=== PATIENT | male | born 1975 | race Caucasian/White ===

== ENCOUNTER 2016-11-09 10:11 | Emergency (ER) | payer OTHER ==
--- NOTE | 2016-11-09 12:10 | UCPHY ---
H & P Time Seen by Provider: 11/09/16 11:23 Patient Type: Established HPI/ROS: CHIEF COMPLAINT: Back pain History by patient HISTORY OF PRESENT ILLNESS: A 41-year-old male with no significant past medical history presents complaining of severe low back pain and spasms. This is the 3rd or 4th episode the patient has had like this in the past year. The last time this happened 2 months ago he was admitted to [facility] due to severe pain and need for pain control. At that time he had an MRI which was read as normal. He subsequently followed up with some physical therapy and has been seen a chiropractor which she feels has been making things somewhat better but in the past few days it seems to have flared up again. He tried taking some muscle relaxant at home with some relief. He has not tried any other medications. He has never tried massage for this. He denies any focal numbness or weakness but has pain in his back when he tries to walk so he has been using a walker. There is no bowel or bladder incontinence. REVIEW OF SYSTEMS: As in HPI, and all other systems reviewed and are negative Smoking Status: Never smoked Physical Exam: General Appearance: Alert and somewhat uncomfortable appearing standing with a walker in room. Eyes: Pupils equal and round no injection. Musculoskeletal: Neck is supple and nontender. Back: No CVA tenderness, some localized muscle spasm along his bilateral paraspinal muscles right greater than left, no bony tenderness Extremities: Full range of motion Neuro: Normal gait, patient's can stand on his heels and toes, distal sensation intact. Skin: No rashes or lesions. Constitutional: Initial Vital Signs Heart Rate 79 11/09/16 10:32 Respiratory Rate 18 11/09/16 10:32 Blood Pressure 121/79 H 11/09/16 10:32 O2 Sat (%) 97 11/09/16 10:32 O2 Delivery Mode Room Air Allergies/Adverse Reactions: No Known Allergies Allergy (Verified 09/23/15 16:52) Home Medications: Medication Instructions Recorded Cyclobenzaprine [Flexeril 10 MG 10 mg PO TID PRN #15 tab 11/09/16 (*)] Lidocaine 5% [Lidoderm 5% Patch 1 ea TD DAILY #10 patch 11/09/16 (*)] Meloxicam 7.5 mg PO DAILY #10 tablet 11/09/16 Medical Decision Making ED Course/Re-evaluation: Patient presents complaining of back spasms make it difficult to get around which are recurrent for him. He recently had a negative MRI and there is no evidence of neurologic compromise. He has had relief from Percocet and muscle relaxants in the past. We discussed the problems using opiate pain medication for chronic and recurrent problems. Patient is agreeable to a trial of meloxicam and muscle relaxants, there follow-up give him Flexeril. We also discussed localized treatment with lidocaine patches and massage. He is also referred for primary care. Departure - Departure Disposition: Home, Routine, Self-Care Clinical Impression: Back pain of thoracolumbar region Condition: Fair Instructions: Low Back Strain (ED), Lower Back Exercises (ED) Additional Instructions: You were seen by Dr. Genny Alejo today. Return for any worsening or new concerns. Take medicines as prescribed. Please establish a primary care physician. Consider also massage therapy for your muscle spasms. Referrals: NONE *PRIMARY CARE P,. [Primary Care Provider] - As per Instructions Prescriptions: Cyclobenzaprine [Flexeril 10 MG (*)] 10 mg PO TID PRN #15 tab PRN Reason: Spasms Lidocaine 5% [Lidoderm 5% Patch (*)] 1 ea TD DAILY #10 patch Meloxicam 7.5 mg PO DAILY #10 tablet - PQRS PQRS Measurement: NA
[2016-11-09 12:42] VITALS: BP 100/78; PULSE 80; RESP 16; O2SAT 96
== END 2016-11-09 12:20 | disposition home or self-care (01) ==
LOC: CED 10:11
DX: M54.6 Pain in thoracic spine (principal); M54.5 Low back pain
CPT/HCPCS: 99214-PO; G0463-PO

== ENCOUNTER 2018-04-15 10:19 | Emergency (ER) | payer OTHER ==
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
[2018-04-15 12:27] VITALS: BP 113/85
== END 2018-04-15 11:45 | disposition home or self-care (01) ==
LOC: CED 10:19
DX: S06.0X0A Concussion without loss of consciousness, initial encounter (principal); V18.0XXA Pedal cycle driver injured in noncollision transport accident in nontraffic accident, initial encounter; Y93.55 Activity, bike riding; Y92.410 Unspecified street and highway as the place of occurrence of the external cause
CPT/HCPCS: 70450-PO